=== PATIENT | male | born 1995 | race African-American/Black ===

== ENCOUNTER 2023-03-07 18:07 | Emergency (ER) | payer OTHER ==
[~2023-03-07] VITALS: Ht 172.7 cm; Wt 107.0 kg
[2023-03-07 18:19] VITALS: BP 135/77; PULSE 67; RESP 16; TEMP 98.1; O2SAT 99
[2023-03-07] MEDS ORDERED: TETANUS, DIPHTHERIA, PERTUSSIS VAC/PF 0.5ML (>10YR OLD) IM ONE (20:00)
== END 2023-03-07 22:17 | disposition home or self-care (01) ==
LOC: ER 18:07
DX: S61.412A Laceration without foreign body of left hand, initial encounter (principal); W45.8XXA Other foreign body or object entering through skin, initial encounter; Y93.89 Activity, other specified; Y92.89 Other specified places as the place of occurrence of the external cause; Y99.8 Other external cause status
CPT/HCPCS: 12001; 90471; 90715; 99283

== ENCOUNTER 2023-04-05 02:05 | Emergency (ER) | payer OTHER ==
[~2023-04-05] VITALS: Ht 172.7 cm; Wt 104.0 kg
[2023-04-05 02:11] VITALS: BP 132/84; O2SAT 99
[2023-04-05] MEDS ORDERED: LIDOCAINE HCL/PF 1% 2ML VIAL INFIL ONE (04:45)
[2023-04-05 06:07] VITALS: PULSE 78; RESP 18; TEMP 98.4
== END 2023-04-05 06:07 | disposition home or self-care (01) ==
LOC: ER 02:05
DX: S61.217A Laceration without foreign body of left little finger without damage to nail, initial encounter (principal); W45.8XXA Other foreign body or object entering through skin, initial encounter; Y93.89 Activity, other specified; Y92.89 Other specified places as the place of occurrence of the external cause; Y99.8 Other external cause status
CPT/HCPCS: 99283; 73130; 12001; J3490

== ENCOUNTER 2023-04-16 12:13 | Emergency (ER) | payer OTHER ==
[~2023-04-16] VITALS: Ht 175.3 cm; Wt 100.0 kg
[2023-04-16 12:24] VITALS: O2SAT 99
[2023-04-16 14:35] VITALS: BP 127/75; PULSE 90; RESP 18; TEMP 98.2
== END 2023-04-16 14:37 | disposition home or self-care (01) ==
LOC: ER 13:09
DX: Z48.02 Encounter for removal of sutures (principal)
CPT/HCPCS: 99281